=== PATIENT | female | born 1975 | race Hispanic/Latino ===

== ENCOUNTER 2019-07-14 09:05 | Emergency (ER) | payer BC ==
--- NOTE | 2019-07-14 11:46 | RAD ---
XR Shoulder Lt 3 View STANDARD HISTORY: Injury, left shoulder pain FINDINGS: No fracture or dislocation is identified.
== END 2019-07-14 12:17 | disposition home or self-care (01) ==
LOC: ERS 09:05
DX: S80.12XA Contusion of left lower leg, initial encounter (principal); L03.116 Cellulitis of left lower limb; W18.30XA Fall on same level, unspecified, initial encounter